=== PATIENT | male | born 1960 | race Caucasian/White ===

== ENCOUNTER 2019-11-21 14:49 | Emergency (ER) | payer BC, OTHER ==
[~2019-11-21] VITALS: Ht 185.4 cm; Wt 72.5 kg
[2019-11-21 15:31] VITALS: BP 112/70
--- NOTE | 2019-11-21 15:42 | RAD ---
CT chest without contrast dated 11/21/2019. Comparison made to 03/05/2013. CLINICAL INDICATION: Pain. TECHNIQUE: Contiguous axial imaging the chest performed without the administration of intravenous contrast. One or more of the following individualized dose reduction techniques were utilized for this examination: 1. Automated exposure control 2. Adjustment of the mA and/or kV according to patient size 3. Use of iterative reconstruction technique FINDINGS: Slight angulation of the seventh and eighth anterior lateral left ribs consistent with small nondisplaced fractures. Osseous structures otherwise intact. The patient is status post median sternotomy and CABG procedure. Heart size upper limits of normal. No pericardial effusion. There is evidence of prior mitral valve replacement. No mediastinal, hilar or axillary lymphadenopathy. Thyroid gland unremarkable. Central airways are patent. Mild diffuse bronchial wall thickening. There is some patchy groundglass opacity in the right lower lobe dependently with small right pleural effusion. Lungs are otherwise clear. No pneumothorax. Limited images of the upper abdomen are unremarkable. No acute bony abnormality. Multilevel spondylosis. IMPRESSION: 1. There are nondisplaced fractures of the anterolateral seventh and eighth left ribs. 2. No evidence of pneumothorax. 3. Patchy right basilar airspace disease, likely atelectasis. There is a small right pleural effusion. 4. Status post CABG procedure and mitral valve replacement. Electronically signed by: Rodri Evans MD (11/21/2019 3:39 PM) [facility]
--- NOTE | 2019-11-21 15:45 | RAD ---
RIBS LEFT AND PA CHEST History: Reason: fall / Spl. Instructions: / History: . Pain Technique: PA view the chest and 2 additional views of the left ribs. Comparison: None. Findings: No consolidation or pleural effusion. Normal heart size. No pneumothorax. Prior mid sternotomy. No displaced rib fractures. Impression: 1. No acute cardiopulmonary process. No displaced rib fractures. Electronically signed by: Mann Goetz DO (11/21/2019 3:42 PM) [id number]
[2019-11-21] MEDS ORDERED: HYDR-3165 PO (15:55)
[2019-11-21] MEDS ORDERED: IBUP600T16 PO (15:55)
[2019-11-21] MEDS ORDERED: LIDO1ADH TP (15:55)
--- NOTE | 2019-11-21 15:57 | PHYS DOC ---
Past History Past Medical History: Other Past Surgical History: Other Smoking: Non-smoker Alcohol Use: None Drug Use: None General Adult EDM: Chief Complaint: RIB PAIN HPI: HPI: Patient is a [age] year old [sex] who presents with [] Review of Systems: Review of Systems: Constitutional: Denies fever or chills Eyes: Denies change in visual acuity HENT: Denies nasal congestion or sore throat Respiratory: Denies cough or shortness of breath Cardiovascular: Denies chest pain or edema GI: Denies abdominal pain, nausea, vomiting, bloody stools or diarrhea : Denies dysuria Musculoskeletal: Denies back pain or joint pain Integument: Denies rash Neurologic: Denies headache, focal weakness or sensory changes Endocrine: Denies polyuria or polydipsia Lymphatic: Denies swollen glands Psychiatric: Denies depression or anxiety Heart Score: Risk Factors: Risk Factors: DM, Current or recent (<one month) smoker, HTN, HLP, family history of CAD, obesity. Risk Scores: Score 0 - 3: 2.5% MACE over next 6 weeks - Discharge Home Score 4 - 6: 20.3% MACE over next 6 weeks - Admit for Clinical Observation Score 7 - 10: 72.7% MACE over next 6 weeks - Early Invasive Strategies Current Medications: Current Meds: Current Medications Medications (Trade) Dose Ordered Sig/[place] Start Time Stop Time Status Last Admin Dose Admin Lidocaine (Lidoderm) 1 patch DAILY 11/22/19 09:00 Miscellaneous (Lidoderm Patch Removal) 1 ea QHS 11/21/19 21:00 Allergies: Allergies: Allergies Coded Allergies Type Severity Reaction Last Updated Verified No Known Drug Allergies 03/05/13 No Physical Exam: PE: Constitutional: Well developed, well nourished, no acute distress, non-toxic appearance. [] HENT: Normocephalic, atraumatic, bilateral external ears normal, oropharynx moist, no oral exudates, nose normal. [] Eyes: PERRLA, EOMI, conjunctiva normal, no discharge. [] Neck: Normal range of motion, no tenderness, supple, no stridor. [] Cardiovascular:Heart rate regular rhythm, no murmur [] Lungs & Thorax: Bilateral breath sounds clear to auscultation [] Abdomen: Bowel sounds normal, soft, no tenderness, no masses, no pulsatile masses. [] Skin: Warm, dry, no erythema, no rash. [] Back: No tenderness, no CVA tenderness. [] Extremities: No tenderness, no cyanosis, no clubbing, ROM intact, no edema. [] Neurologic: Alert and oriented X 3, normal motor function, normal sensory function, no focal deficits noted. [] Psychologic: Affect normal, judgement normal, mood normal. [] EKG: EKG: [] Radiology/Procedures: Radiology/Procedures: IMAGING REPORT Signed PATIENT: GROVER PERERA ACCOUNT: [id number] : 1960 LOCATION: ER AGE: 59 SEX: M EXAM STATUS: REG ER ORD. PHYSICIAN: KOURTNEY WEISS DO REASON: fall PROCEDURE: RIBS LEFT AND PA CHEST RIBS LEFT AND PA CHEST History: Reason: fall / Spl. Instructions: / History: . Pain Technique: PA view the chest and 2 additional views of the left ribs. Comparison: None. Findings: No consolidation or pleural effusion. Normal heart size. No pneumothorax. Prior mid sternotomy. No displaced rib fractures. Impression: 1. No acute cardiopulmonary process. No displaced rib fractures. Electronically signed by: Mann Goetz DO (11/21/2019 3:42 PM) [id number] DICTATED AND SIGNED BY: MANN GOETZ DO DATE: 11/21/19 154 CC: PCP,NO; KOURTNEY WEISS DO ~ IMAGING REPORT Signed PATIENT: GROVER PERERA ACCOUNT: [id number] : 1960 LOCATION: ER AGE: 59 SEX: M EXAM STATUS: REG ER ORD. PHYSICIAN: KOURTNEY WEISS DO REASON: left lower rib pain PROCEDURE: CT CHEST WO CONTRAST CT chest without contrast dated 11/21/2019. Comparison made to 03/05/2013. CLINICAL INDICATION: Pain. TECHNIQUE: Contiguous axial imaging the chest performed without the administration of intravenous contrast. One or more of the following individualized dose reduction techniques were utilized for this examination: 1. Automated exposure control 2. Adjustment of the mA and/or kV according to patient size 3. Use of iterative reconstruction technique FINDINGS: Slight angulation of the seventh and eighth anterior lateral left ribs consistent with small nondisplaced fractures. Osseous structures otherwise intact. The patient is status post median sternotomy and CABG procedure. Heart size upper limits of normal. No pericardial effusion. There is evidence of prior mitral valve replacement. No mediastinal, hilar or axillary lymphadenopathy. Thyroid gland unremarkable. Central airways are patent. Mild diffuse bronchial wall thickening. There is some patchy groundglass opacity in the right lower lobe dependently with small right pleural effusion. Lungs are otherwise clear. No pneumothorax. Limited images of the upper abdomen are unremarkable. No acute bony abnormality. Multilevel spondylosis. IMPRESSION: 1. There are nondisplaced fractures of the anterolateral seventh and eighth left ribs. 2. No evidence of pneumothorax. 3. Patchy right basilar airspace disease, likely atelectasis. There is a small right pleural effusion. 4. Status post CABG procedure and mitral valve replacement. Electronically signed by: Rodri Evans MD (11/21/2019 3:39 PM) [facility] [place] DICTATED AND SIGNED BY: RODRI EVANS MD DATE: 11/21/19 1539 CC: PCP,ARSENIO; KOURTNEY WEISS DO ~ Course & Med Decision Making: Course & Med Decision Making Pertinent Labs and Imaging studies reviewed. (See chart for details) Encouraged urgent outpatient follow-up with PMD. Life-threatening processes we re considered but are low suspicion at this time, given history and physical exam. Pt was educated on all prescription medications and adverse effects. All patient's questions were answered and pt was stable at time of discharge. Life/limb-threatening differential includes but is not limited to, intracranial hemorrhage, diffuse axonal injury, spinal cord syndrome, unstable cervical fracture or SCIWORA, fractures or joint dislocations, neurovascular injuries, organ injury or laceration, pneumothorax, pneumoperitoneum, pericardial tamponade, unstable pelvic fracture, compartment syndrome, flail chest or respiratory distress, burn injury or asphyxiation I spoken with the patient and her caregivers. I explained the patient's condition, diagnoses and treatment plan based on the information available to me at this time. I have answered the patient and her caregiver's questions and addressed any concerns. The patient and her caregivers have a good understanding of patient's diagnosis, condition and treatment plan as can be expected at this point. Vital signs have been stable. Patient's condition is stable and appropriate for discharge from the emergency department. Patient will pursue further outpatient evaluation with primary care physician or other designated or consulting physician as outlined in the discharge instructions. The patient and/or caregivers are agreeable to this plan of care and follow-up instructions have been explained in detail. The patient and/or caregivers have received these instructions in written form and have expressed an understanding of the discharge instructions. The patient and/or caregivers are aware that any significant change of condition or worsening of symptoms should prompt immediate return to this or the closest emergency department or call to [facility] George Disclaimer: George Disclaimer: This electronic medical record was generated, in whole or in part, using a voice recognition dictation system. Departure Departure: Impression: Primary Impression: Fall Additional Impression: Rib fractures Disposition: HOME/RESIDENCE PRIOR TO ADM Condition: STABLE Referrals: PCP,NO (PCP) FOLLOW UP WITH FAMILY MEDICINE: [facility], [id number] [place] [address], [facility] Instructions: Fall Prevention and Home Safety, Rib Contusion, Rib Fracture Additional Instructions: EMERGENCY DEPARTMENT GENERAL DISCHARGE INSTRUCTIONS Thank you for coming to [facility] (ED) today and trusting us with you care. We trust that you had a positivie experience in our Emergency Department. If you wish to speak to the department management, you may call the director at [phone]. YOUR FOLLOW UP INSTRUCTIONS ARE FOLLOWS: 1. Do you have a private Doctor? If you do not have a private doctor, please ask for a resource list of physicians or clinics that may be able to assist you with follow up care. 2. The Emergency Physician has interpreted your x-rays. The X-Ray specialist will also review them. If there is a change in the findings, you will be notified in 48 hours when at all possible. 3. A lab test or culture has been done, your results will be reviewed and you will be notified if you need a change in treatment. ADDITIONAL INSTRUCTIONS AND INFORMATION: 1. Your care today has been supervised by a physician who is specially trained in emergency care. Many problems require more than one evaluation for a complete diagnosis and treatment. We recommend that you schedule your follow up appointment as recommended to ensure complete treatment of you illness or injury. If you are unable to obtain follow up care and continue to have a problem, or if your condition worsens, we recommend that you return to the ED. 2. We are not able to safely determine your condition over the phone nor are we able to give sound medical advice over the phone. For these safety reasons, if you call for medical advice we will ask you to come to the ED for further evaluation. 3. If you have any questions regarding these discharge instructions please call the ED at [phone]. SAFETY INFORMATION: In the interest of safety, wellness, and injury prevention; we encourage you to wear your sealbelt, if you smoke; quite smoking, and we encourage family to use a protective helmet for bicycling and other sporting events that present an increased risk for head injury. IF YOUR SYMPTOMS WORSEN OR NEW SYMPTOMS DEVELOP, OR YOU HAVE CONCERNS ABOUT YOUR CONDITION; OR IF YOUR CONDITION WORSENS WHILE YOU ARE WAITING FOR YOUR FOLLOW UP APPOINTMENT; EITHER CONTACT YOUR PRIMARY CARE DOCTOR, THE PHYSICIAN WHOSE NAME AND NUMBER YOU WERE GIVEN, OR RETURN TO THE ED IMMEDIATELY. Scripts Ibuprofen (IBUPROFEN) 600 Mg Tablet 600 MG PO Q6HRS for headache, #20 TAB Prov: KOURTNEY WEISS DO 11/21/19 Lidocaine/Menthol (LIDOPATCH) 1 Each Adh..patch 1 LATONIA TP DAILY for pain for 5 Days, #5 EACH 0 Refills Prov: KOURTNEY WEISS DO 11/21/19 Hydrocodone Bit/Acetaminophen (NORCO 5-325 TABLET) 1 Each Tablet 1 TAB PO PRN Q6HRS PRN for PAIN for 3 Days, #20 TAB 0 Refills Prov: KOURTNEY WEISS DO 11/21/19 KOURTNEY WEISS DO Nov 21, 2019 15:57
[2019-11-21] MEDS ORDERED: LIDOCAINE (700MG/PATCH) PATCH. ONE (16:07)
[2019-11-21] MEDS ORDERED: PATCH REMOVAL. MC SCH (21:00)
[2019-11-22] MEDS ORDERED: LIDOCAINE (700MG/PATCH) PATCH. TD SCH (09:00)
== END 2019-11-21 16:46 | disposition home or self-care (01) ==
LOC: ER 14:49
DX: S22.42XA Multiple fractures of ribs, left side, initial encounter for closed fracture (principal); W10.8XXA Fall (on) (from) other stairs and steps, initial encounter; Y93.89 Activity, other specified; Y92.89 Other specified places as the place of occurrence of the external cause; Y99.8 Other external cause status
CPT/HCPCS: 71101; 71250; 99284

== ENCOUNTER 2019-12-20 17:13 | Observation (INO) | payer OTHER ==
[~2019-12-20] VITALS: Ht 185.4 cm; Wt 70.7 kg
[~2019-12-20 17:13] MED LIST: HYDR-3165 PO; IBUP600T16 PO; LIDO1ADH TP
--- NOTE | 2019-12-20 17:21 | PHYS DOC ---
Past History Past Medical History: CAD, Heart Disease, Stroke (YUAN DA SILVA DO) Past Surgical History: Coronary Bypass Surgery (YUAN DA SILVA DO) Smoking: Non-smoker Alcohol Use: None Drug Use: None (YUAN DA SILVA DO) General Adult EDM: Chief Complaint: UPPER EXTREMITY SWELLING HPI: HPI: 59 year old male with pmh of prior CVA with chronic left sided deficit presents with report of increased numbness and swelling to LUE which started last night at approximately 2100. Reports last stroke 1-2 months ago. Denies trauma. Denies fever/chills. Home health nurse presented today and was concerned for possible new stroke today and therefore had patient present to ED for evaluation. (YUAN DA SILVA DO) Review of Systems: Review of Systems: Constitutional: Denies fever or chills Eyes: Denies redness or eye pain HENT: Denies nasal congestion or sore throat Respiratory: Denies cough or shortness of breath Cardiovascular: Denies chest pain or palpitations GI: Denies abdominal pain, nausea, or vomiting : Denies dysuria or hematuria Musculoskeletal: Denies back pain; reports swelling to LUE Integument: Denies rash or skin lesions Neurologic: Denies headache; reports numbness to left arm and hand Complete systems were reviewed and found to be within normal limits, except as documented in this note. (YUAN DA SILVA DO) Allergies: Allergies: Allergies Coded Allergies Type Severity Reaction Last Updated Verified No Known Drug Allergies 03/05/13 No (YUAN DA SILVA DO) Physical Exam: PE: Constitutional: Well developed, well nourished, no acute distress, non-toxic appearance HENT: Normocephalic, atraumatic Eyes: PERRL, EOMI, conjunctiva normal, no discharge Neck: Normal range of motion, no tenderness, supple Lungs & Thorax: No respiratory distress, equal chest rise and fall Abdomen: Soft, no tenderness Skin: Warm, dry, no erythema, no rash Extremities: Left upper arm 2+ edema with increased warmth and tenderness, strength 2/5 to LUE Neurologic: Alert and oriented X 3, LUE weakness and numbness- hx of chronic deficit Psychologic: Affect normal, judgment normal (YUAN DA SILVA DO) Current Patient Data: Labs: Laboratory Tests Test 12/20/19 18:10 White Blood Count 7.8 x10^3/uL Red Blood Count 3.99 x10^6/uL Hemoglobin 11.9 g/dL Hematocrit 34.9 % Mean Corpuscular Volume 88 fL Mean Corpuscular Hemoglobin 30 pg Mean Corpuscular Hemoglobin Concent 34 g/dL Red Cell Distribution Width 14.3 % Platelet Count 264 x10^3/uL Neutrophils (%) (Auto) 76 % Lymphocytes (%) (Auto) 15 % Monocytes (%) (Auto) 6 % Eosinophils (%) (Auto) 2 % Basophils (%) (Auto) 1 % Neutrophils # (Auto) 5.9 x10^3uL Lymphocytes # (Auto) 1.2 x10^3/uL Monocytes # (Auto) 0.5 x10^3/uL Eosinophils # (Auto) 0.1 x10^3/uL Basophils # (Auto) 0.1 x10^3/uL Prothrombin Time 10.7 SEC Prothromb Time International Ratio 1.0 Activated Partial Thromboplast Time 28 SEC Sodium Level 140 mmol/L Potassium Level 4.1 mmol/L Chloride Level 103 mmol/L Carbon Dioxide Level 26 mmol/L Anion Gap 11 Blood Urea Nitrogen 27 mg/dL Creatinine 1.7 mg/dL Estimated GFR (Cockcroft-Gault) 41.8 BUN/Creatinine Ratio 16 Glucose Level 147 mg/dL Lactic Acid Level 1.2 mmol/L Calcium Level 9.6 mg/dL Magnesium Level 1.4 mg/dL Total Bilirubin 0.8 mg/dL Aspartate Amino Transf (AST/SGOT) 20 U/L Alanine Aminotransferase (ALT/SGPT) 22 U/L Alkaline Phosphatase 73 U/L Troponin I Quantitative < 0.017 ng/mL Total Protein 7.4 g/dL Albumin 3.7 g/dL Albumin/Globulin Ratio 1.0 (CELESTE MILLER DO) EKG: EKG: @1717 NSR at 86bpm, NO ST elevation, QRS 94ms, QT/QTc 376/453ms, baseline artifact. (YUAN DA SILVA DO) Radiology/Procedures: Radiology/Procedures: PROCEDURE: CT CODE STROKE HEAD WO EXAM: CT head without contrast INDICATION: History of stroke with left-sided deficits. Home health nurse concerned about worsened left arm deficits. Left arm swelling. COMPARISON: CT head 09/27/2019 TECHNIQUE: Axial CT imaging through the head without intravenous contrast. One or more of the following individualized dose reduction techniques were utilized for this examination: 1. Automated exposure control 2. Adjustment of the mA and/or kV according to patient size 3. Use of iterative reconstruction technique. FINDINGS: There has been progression of encephalomalacia in the right frontoparietal and occipital regions with increased confluent white matter hypoattenuation throughout the right cerebral hemisphere and areas of loss of suarez-white matter differentiation. This is all likely sequela of old infarct, however superimposed subacute or acute infarct is not entirely excluded. There is new mild ex vacuo dilatation of the right lateral ventricle. Sulci are mildly enlarged. No intracranial hemorrhage. No acute osseous abnormality. There are surgical changes of the maxillary sinuses. Globes and orbits are intact. Skull and scalp are intact. IMPRESSION: Probable old infarcts in the right cerebral hemisphere with progression of encephalomalacia in the frontoparietal and occipital regions. Superimposed subacute or acute infarcts in these regions cannot entirely be excluded given the extent of change from prior exam. MRI could be obtained to evaluate for acute component if clinically indicated. Results discussed by Dr. Hyatt with the ER physician at 5:36 PM on 12/20/2019. FOR INTERNAL CODING PURPOSES Critical result: Findings discussed with YUAN DA SILVA at 12/20/2019 5:36 PM. RESULT CODE: (C) Electronically signed by: Estephanie Hyatt MD (12/20/2019 5:49 PM) [id number] (YUAN DA SILVA DO) Radiology/Procedures: [address] [address] IMAGING REPORT Signed PATIENT: GROVER PERERA ACCOUNT: [id number] : 1960 LOCATION: ER AGE: 59 SEX: M EXAM STATUS: REG ER ORD. PHYSICIAN: YUAN DA SILVA DO REASON: swelling eval for DVT PROCEDURE: VENOUS UPPER EXTREMITY LEFT Examination: Ultrasound left upper extremity venous duplex HISTORY: History of left upper extremity swelling COMPARISON: None Technique: Grayscale, color Doppler 2-D, spectral waveforms analysis of the left upper extremity venous performed. FINDINGS: The visualized internal jugular vein, subclavian vein, axillary vein, basilic vein, cephalic vein, radial, ulnar veins are patent. IMPRESSION: No evidence of deep venous thrombosis in the left upper extremity venous system. Electronically signed by: Santiago Cason MD (12/20/2019 6:05 PM) [id number] DICTATED AND SIGNED BY: SANTIAGO CASON MD DATE: 12/20/19 1802 CC: PCP,NO; CELESTE MILLER DO; YUAN DA SILVA DO ~ (CELESTE MILLER DO) Course & Med Decision Making: Course & Med Decision Making Pertinent Labs and Imaging studies reviewed. (See chart for details) Patient with pmh of CVA with chronic left arm deficit presents with report of left arm swelling and numbness that started at approximately 2100 last night. Patient's home health nurse became concern for possible new stroke and sent patient to ED for evaluation. NIHSS 7 but per patient is baseline. CT head obtained with chronic changes. However, radiologist expressed cannot fully exclude acute on chronic CVA. Labs obtained and pending. Venous doppler of LUE also pending. Sign out given to Dr. Miller for further evaluation and final disposition. Discussed current findings and plan with patient, who acknowledges understanding and agreement. (YUAN DA SILVA DO) Course & Med Decision Making 1800 Care of patient assumed at shift change at this time. CT head is unremarkable for acute changes. No indication for TPA at this time. Onset of left arm subacute weakness has been since 2100 yesterday. Patient is out of the window for any thrombolytics 1954 stable, patient has some mild weakness to left arm and less weakness to left leg. Patient is complaining of some numbness to his left foot. Patient is otherwise neurovascularly intact. The side was previously affected by an old stroke. However patient states that the weakness is worse than normal. Regarding the swelling to his left arm a Doppler study was obtained and there is no DVT present. Remainder of his ER work-up, blood work etc. was unremarkable. We will see about overnight admission to the hospital and the hospitalist service was contacted to discuss case (CELESTE MILLER DO) Dragon Disclaimer: Dragon Disclaimer: This electronic medical record was generated, in whole or in part, using a voice recognition dictation system. (YUAN DA SILVA DO) Departure Departure: Impression: Primary Impression: Left arm numbness Additional Impressions: Left arm swelling Left arm weakness Paresthesia of left leg History of CVA (cerebrovascular accident) Disposition: 09 ADMITTED INPT THIS HOSP Admitting Physician: Brian Valles (CELESTE MILLER DO) Condition: STABLE Referrals: PCP,NO (PCP) NIHSS - ED NIH Stroke Scale: NIH Stroke Scale Response (Comments) Value Level of Consciousness: 0 Alert/Responsive 0 LOC Questions: 0 Answers both correctly 0 LOC Commands: 0 Performs both tasks 0 Best Gaze: 0 Normal 0 Visual: 0 No visual loss 0 Facial Palsy: 0 Normal, symmetrical 0 Motor - Left Arm 3 Limb falls 3 Motor - Right Arm 3 Limb falls 3 Motor - Left Leg 0 No drift 0 Motor: Right Leg 0 No drift 0 Limb Ataxia: 0 Absent 0 Sensory: 1 Mid to moderate loss 1 Best Language: 0 Normal 0 Dysathria: 0 Normal 0 Extinction and Inattention: 0 Normal 0 Total 7 NIH Stroke Scale: NIH Stroke Scale Response (Comments) Value Level of Consciousness: 0 Alert/Responsive 0 LOC Questions: 0 Answers both correctly 0 LOC Commands: 0 Performs both tasks 0 Best Gaze: 0 Normal 0 Visual: 0 No visual loss 0 Facial Palsy: 0 Normal, symmetrical 0 Motor - Left Arm 1 Drifts, but can hold 1 Motor - Right Arm 0 No drift 0 Motor - Left Leg 1 Drift but can hold 1 Motor: Right Leg 0 No drift 0 Limb Ataxia: 1 One limb 1 Sensory: 1 Mid to moderate loss 1 Best Language: 0 Normal 0 Dysathria: 0 Normal 0 Extinction and Inattention: 0 Normal 0 Total 4 DA SILVA,YUAN Marshall DO Dec 20, 2019 17:20 CELESTE MILLER DO Dec 20, 2019 18:06
--- NOTE | 2019-12-20 17:38 | EKG ---
[address] [address] Test Date: 2019-12-20 Test Time: 17:17:45 Pat Name: GROVER PERERA Department: Room: Gender: M Patient Transport Officer: JENNY : 1960 Requested By: YUAN DA SILVA Order Number: [id number] Reading MD: Measurements Intervals [place] Rate: 86 P: 0 AL: 178 QRS: 4 QRSD: 94 T: 92 QT: 376 QTc: 453 Interpretive Statements SINUS RHYTHM QRS(T) CONTOUR ABNORMALITY CONSIDER ANTEROSEPTAL MYOCARDIAL DAMAGE T ABNORMALITY IN HIGH LATERAL LEADS INFERIOR LEADS ABNORMAL ECG RI6.02 No previous ECG available for comparison
--- NOTE | 2019-12-20 17:52 | RAD ---
EXAM: CT head without contrast INDICATION: History of stroke with left-sided deficits. Home health nurse concerned about worsened left arm deficits. Left arm swelling. COMPARISON: CT head 09/27/2019 TECHNIQUE: Axial CT imaging through the head without intravenous contrast. One or more of the following individualized dose reduction techniques were utilized for this examination: 1. Automated exposure control 2. Adjustment of the mA and/or kV according to patient size 3. Use of iterative reconstruction technique. FINDINGS: There has been progression of encephalomalacia in the right frontoparietal and occipital regions with increased confluent white matter hypoattenuation throughout the right cerebral hemisphere and areas of loss of suarez-white matter differentiation. This is all likely sequela of old infarct, however superimposed subacute or acute infarct is not entirely excluded. There is new mild ex vacuo dilatation of the right lateral ventricle. Sulci are mildly enlarged. No intracranial hemorrhage. No acute osseous abnormality. There are surgical changes of the maxillary sinuses. Globes and orbits are intact. Skull and scalp are intact. IMPRESSION: Probable old infarcts in the right cerebral hemisphere with progression of encephalomalacia in the frontoparietal and occipital regions. Superimposed subacute or acute infarcts in these regions cannot entirely be excluded given the extent of change from prior exam. MRI could be obtained to evaluate for acute component if clinically indicated. Results discussed by Dr. Hyatt with the ER physician at 5:36 PM on 12/20/2019. FOR INTERNAL CODING PURPOSES Critical result: Findings discussed with YUAN DA SILVA at 12/20/2019 5:36 PM. RESULT CODE: (C) Electronically signed by: Estephanie Hyatt MD (12/20/2019 5:49 PM) [id number]
--- NOTE | 2019-12-20 18:17 | RAD ---
Examination: Ultrasound left upper extremity venous duplex HISTORY: History of left upper extremity swelling COMPARISON: None Technique: Grayscale, color Doppler 2-D, spectral waveforms analysis of the left upper extremity venous performed. FINDINGS: The visualized internal jugular vein, subclavian vein, axillary vein, basilic vein, cephalic vein, radial, ulnar veins are patent. IMPRESSION: No evidence of deep venous thrombosis in the left upper extremity venous system. Electronically signed by: Santiago Cason MD (12/20/2019 6:05 PM) [id number]
[2019-12-20 18:50] LABS: CALCIUM 9.6 mg/dL (8.5-10.1); CREATININE 1.7 mg/dL (0.7-1.3); GFR 41.8; POTASSIUM 4.1 mmol/L (3.5-5.1)
[2019-12-20 19:00] LABS: ALBUMIN 3.7 g/dL (3.4-5.0); MAGNESIUM 1.4 mg/dL (1.8-2.4); TOTAL BILIRUBIN 0.8 mg/dL (0.2-1.0); TOTAL PROTEIN 7.4 g/dL (6.4-8.2)
--- NOTE | 2019-12-20 19:03 | RAD ---
EXAM: PORTABLE CHEST 1V 12/20/2019 5:15 PM CLINICAL INDICATION: Weakness COMPARISON: Chest radiograph 03/05/2013 TECHNIQUE: AP upright view of the chest FINDINGS: There are new median sternotomy wires. The heart and mediastinum are normal. Lungs are well-expanded. No consolidation. There are new small bilateral pleural effusions. No pneumothorax. No acute osseous abnormality. IMPRESSION: New small bilateral pleural effusions. Electronically signed by: Estephanie Hyatt MD (12/20/2019 7:00 PM) [id number]
[2019-12-20 19:47] LABS: BASO # 0.1 x10^3/uL (0.0-0.2); BASO % 1 % (0-3); EOS # 0.1 x10^3/uL (0.0-0.7); EOS % 2 % (0-3); HEMATOCRIT 34.9 % (39.0-53.0); HEMOGLOBIN 11.9 g/dL (13.0-17.5); LYMPH # 1.2 x10^3/uL (1.0-4.8); LYMPH % 15 % (24-48); MEAN CORPUSCULAR HEMOGLOBIN 30 pg (25-35); MEAN CORPUSCULAR HGB CONC 34 g/dL (31-37); MEAN CORPUSCULAR VOLUME 88 fL (79-100); MONO # 0.5 x10^3/uL (0.0-1.1); MONO % 6 % (0-9); NEUT # 5.9 x10^3uL (1.8-7.7); NEUT % 76 % (31-73); PLATELET COUNT 264 x10^3/uL (140-400); RED BLOOD COUNT 3.99 x10^6/uL (4.30-5.70); RED CELL DISTRIBUTION WIDTH 14.3 % (11.5-14.5); WHITE BLOOD COUNT 7.8 x10^3/uL (4.0-11.0)
[2019-12-20] MEDS ORDERED: ONDANSETRON PF 4 MG/2 ML VIAL. IVP PRN (20:45)
[2019-12-20 21:39] VITALS: BP 159/85
[2019-12-20 23:12] VITALS: BP 167/95
[2019-12-21] MEDS ORDERED: TICA90TA PO (02:06)
[2019-12-21] MEDS ORDERED: PANT40TA6 PO (02:06)
[2019-12-21] MEDS ORDERED: BACL10TA PO (02:06)
[2019-12-21] MEDS ORDERED: METF500T16 PO (02:06)
[2019-12-21] MEDS ORDERED: CARV12.547 PO (02:06)
[2019-12-21] MEDS ORDERED: ATORVASTATIN CA80 MG PO (02:06)
[2019-12-21] MEDS ORDERED: ASPI-630 PO (02:06)
[2019-12-21] MEDS ORDERED: ESCITALOPRAM OX20 MG PO (02:06)
[2019-12-21 05:18] VITALS: BP 155/89
[2019-12-21] MEDS ORDERED: BACL20TA PO (05:27)
[2019-12-21] MEDS: PANTOPRAZOLE 40 MG TABLET. PO SCH (08:41)
[2019-12-21] MEDS: TICAGRELOR 90 MG TABLET. PO SCH ×2 (08:41→20:15)
[2019-12-21] MEDS: BACLOFEN 20 MG TABLET PO SCH ×3 (08:42→20:15)
[2019-12-21] MEDS: CARVEDILOL 12.5 MG TABLET PO SCH ×2 (08:42→17:15)
[2019-12-21] MEDS: CITALOPRAM 20 MG TABLET. PO SCH (08:42)
[2019-12-21] MEDS: ASPIRIN CHEWABLE 81 MG TABLET. PO SCH (08:42)
[2019-12-21 10:32] VITALS: BP 135/82
[2019-12-21 14:51] VITALS: BP 116/77
--- NOTE | 2019-12-21 15:44 | HP ---
ADMIT DATE: 12/20/2019 HISTORY OF PRESENT ILLNESS: The patient is a 59-year-old male patient who came to the Emergency Room complaining of upper extremity swelling. He apparently had prior cerebrovascular accident with left-sided deficit, presents with report of increased numbness and swelling of the left upper extremity, which started last night at approximately 2100. He had a stroke about 1-2 months ago. Denied any trauma, denied any fevers or chills. Home health nurse presented today and was concerned for possible new stroke. Therefore, the patient presented to the Emergency Room for further evaluation. He was extensively investigated and has had extensive lab work and had had imaging studies including venous Doppler ultrasound of his left upper extremity, which showed no evidence of deep vein thrombosis in the left upper extremity venous system. His CT scan of the head was unremarkable. The patient was admitted for further evaluation and to consult Dr. Jeong. PAST MEDICAL HISTORY: Significant for hypertension, hyperlipidemia, type 2 diabetes mellitus and also has right middle cerebral artery territory infarct with left-sided hemiplegia. He has also coronary artery disease, status post coronary artery bypass graft surgery. PAST SURGICAL HISTORY: Significant for coronary artery bypass graft surgery. ALLERGIES: He has no known drug allergies. MEDICATIONS: He is currently on following: Baclofen 10 mg 3 times a day, Brilinta 90 mg twice a day, atorvastatin calcium 80 mg at bedtime, carvedilol 12.5 mg twice a day, aspirin 81 mg chewable tablet once a day, ibuprofen 600 mg every 6 hours, hydrocodone/APAP 5/325 one tablet every 6 hours, escitalopram oxalate 20 mg daily, Protonix 20 mg once a day, metformin 500 mg twice a day, lido patch 1 patch applied topically daily. FAMILY HISTORY: Noncontributory. SOCIAL HISTORY: He lives alone. He has a caregiver. PHYSICAL EXAMINATION: GENERAL: On arrival to the Emergency Room, the patient looked well and was clearly in no apparent distress. He was pale, but no jaundice, cyanosis or thyromegaly. No jugular venous distention. No limb edema. VITAL SIGNS: His heart rate was 85, blood pressure was 149/95, temperature was 97.8, respiratory rate was 16, and oxygen saturation was 98%. HEAD, EYES, EARS, NOSE AND THROAT: Showed normocephalic, atraumatic. NECK: Supple. HEART: Showed normal first and second heart sounds with no gallop, rub or murmur. CHEST: Clear to auscultation. No crepitation or rhonchi. ABDOMEN: Scaphoid, soft, nontender. NEUROLOGIC: He is awake, alert, responding appropriately. He has mild left-sided facial droop and left-sided hemiplegia with fixed flexion contraction of his left upper extremity. LABORATORY DATA: His lab work on arrival showed a white cell count of 7800, hemoglobin 12, hematocrit 35, MCV 88 and platelet count of 264,000. His chemistry showed a serum sodium 140, potassium 4.1, chloride 103, bicarbonate 26, anion gap of 11, BUN 27, creatinine 1.7, estimated GFR was 42 mL per minute. His glucose 147. Lactic acid was 1.2, calcium was 9.6, magnesium was 1.4. Total bilirubin, AST, ALT, alkaline phosphatase were normal. His total protein was 7.4, albumin was 3.7. His prothrombin time was 10.7, INR 1, aPTT was 28. His venous Doppler ultrasound of the left upper extremity showed no evidence of deep vein thrombosis in the left upper extremity venous system. He has had a CT scan of the head, which showed that the patient has probable old infarct in the right cerebral hemisphere with progression of encephalomalacia in the frontoparietal and occipital region, superimposed subacute or acute infarct in this region cannot be entirely excluded given the extent of change from prior exam. MRI could be obtained to evaluate for acute component, if clinically indicated. His chest x-ray showed there are new mediastinal sternotomy wires. The heart and mediastinum are normal. Lungs are well expanded. No consolidation. There are new small bilateral pleural effusion; no pneumothorax, no acute osseous abnormality. ASSESSMENT AND PLAN: The patient was basically admitted for a new complaint of upper extremity swelling. We will consult Dr. Jeong and decide on further management accordingly. EZE ALMODOVAR MD DR: TAMERA/gurdeep JOB#: [id number] / [id number]
--- NOTE | 2019-12-21 18:56 | CONS ---
DATE OF CONSULTATION: NEUROLOGY CONSULTATION REFERRING PHYSICIAN: Dr. Valles. REASON FOR CONSULTATION: Rule out stroke versus TIA. HISTORY OF PRESENT ILLNESS: This is a 59-year-old right-handed male who was admitted through Emergency Room after he presented with increasing symptoms of weakness, numbness, paresthesia and swelling of the left upper extremity began yesterday. The patient described increased weakness of the left upper extremity associated with swelling and redness. He denies any chest pain, shortness of breath or palpitations. He denies any recent injuries or falls, fever or chills. The patient stated he had a seizure a month ago resulted in left hemiparesis, more prominent on the right side with some residual contractions. He was admitted to [facility] and rehabilitation only for week. The patient was discharged because he exhausted his insurance. Currently, he denies headaches, visual disturbances, nausea, vomiting, or dizziness. He has not been able to walk since the stroke and he has been ambulated with a wheelchair. PAST MEDICAL HISTORY: Significant for coronary artery disease, recent stroke as described above, peripheral neuropathy, hypertension, diabetes mellitus, smoking, hyperlipidemia and depression. PAST SURGICAL HISTORY: Positive for coronary artery bypass graft. SOCIAL HISTORY: He is a former smoker. He denies alcohol or illegal drug use. FAMILY HISTORY: Positive for hypertension and coronary artery disease. CURRENT MEDICATIONS: Lipitor 80 mg p.o. at bedtime, Celexa 40 mg daily, Brilinta 90 mg b.i.d. daily, baclofen 20 mg t.i.d., aspirin 81 mg daily, carvedilol 12.5 mg b.i.d., pantoprazole 40 mg daily, and Zofran p.r.n. ALLERGIES: No known drug allergies. REVIEW OF SYSTEMS: A 10-point review of system was performed as mentioned above in history of present illness. PHYSICAL EXAMINATION: GENERAL: Well-developed, well-nourished male, not in acute distress. He weighs 68.4 kilos. VITAL SIGNS: Blood pressure 155/89, respiratory rate 20, pulse is 82 and regular, temperature 98.2, oxygen saturation 97% on room air. HEENT: Normocephalic, atraumatic, otherwise unremarkable. NECK: Supple. Negative for carotid bruit, lymphadenopathy or thyromegaly. LUNGS: Clear to A and P. CARDIOVASCULAR: Regular rate and rhythm, normal S1 and S2. No murmur. ABDOMEN: Soft. Bowel sounds positive. No palpable mass, organomegaly or tenderness. EXTREMITIES: Positive for swelling, redness and warmth of the distal left upper extremity and tender to touch, mainly on the dorsal aspect of the left hand. NEUROLOGICAL EXAM: 1. Mental Status: The patient is alert and oriented x 3. Speech is fluent. There is no language dysfunction. Memory, judgment, and abstracting thinking are normal. The patient denies hallucination or delusion. 2. Cranial Nerves: Visual geiger are full. The pupils are reactive to light and accommodation. The extraocular movements are intact. There is no nystagmus. There is motor facial and sensory deficit. Hearing is intact bilaterally. The palate is elevated symmetrically. Sternocleidomastoid muscles are powerful bilaterally. The patient shrugs his shoulders symmetrically and protrudes his tongue in the midline without fasciculation or atrophy. 3. Motor: No focal muscle bulk was seen. The tone is normal. The strength is -4/5 in the left upper extremity with drifting. The strength in the left lower extremity is +4/5. The strength also was 5/5 throughout. 4. Sensory Examination: Revealed normal pinprick, light touch, vibratory and position senses. 5. Deep Tendon Reflexes: Symmetric and hyperactive on the left lower extremity with positive Babinski. 6. Gait: Not tested. DIAGNOSTIC DATA: Nonenhanced head CT scan revealed old infarct in the right cerebral hemisphere in the frontoparietal and occipital regions. However, subacute and acute infarcts could not entirely be excluded at this time. Left upper extremity venous duplex ultrasound revealed no evidence of DVT. Chest x-ray revealed small bilateral pleural effusions. LABORATORY DATA: CBC revealed white blood cells of 7.8 thousand, hemoglobin 11.9, hematocrit 34.9, platelet count 264,000. Chemistry revealed sodium 140, potassium 4.1, chloride 103, CO2 of 26, BUN 27, creatinine 1.7, glucose 147, calcium 9.6. Troponin level is normal. Magnesium is low at 1.4. Coagulation: PT is 10.7, INR 1. IMPRESSION: 1. Recent stroke resulted in left hemiparesis, more prominent on the left upper extremity with contractions. 2. Acute onset of swelling, warmth and pain of the left distal upper extremities with negative venous ultrasound for DVT and possible early cellulitis or other pathology. 3. Multiple medical problems include coronary artery disease, status post coronary artery bypass graft, peripheral neuropathy, hypertension, diabetes mellitus, and hyperlipidemia. 4. Renal insufficiency versus failure versus dehydration. RECOMMENDATIONS: 1. Continue with current medical management and home medication. 2. Treat the underlying possible cellulitis, left upper extremity. 3. Physical therapy evaluation and stroke rehabilitation. 4. Treat the underlying renal insufficiency. M Endy AHUJA MD DR: JACQUI/gurdeep JOB#: [id number] / [id number]
[2019-12-21 20:28] VITALS: BP 115/73
[2019-12-21] MEDS ORDERED: ATORVASTATIN CALCIUM 20 MG TABLET PO SCH (21:00)
--- NOTE | 2019-12-21 21:05 | PN ---
DATE: 12/21/2019 SUBJECTIVE: The patient was admitted yesterday with swelling of his left upper extremity and pain. He has had venous Doppler ultrasound of his left upper extremity, which was negative for deep vein thrombosis. CT scan showed that he has encephalomalacia involving his right cerebral hemisphere in the areas including frontoparietal and occipital region and the radiologist stated that superimposed subacute or acute infarct in this region cannot be entirely excluded; however, the patient's main complaint is swelling and exquisite pain, particularly on the dorsum of his hand, his fingers and thumb. The left upper extremity is definitely more swollen than the right, but there is no erythema. He is afebrile and his white cell count was normal at 7800. PHYSICAL EXAMINATION: GENERAL: When I examined him this afternoon, he looked pale, but no jaundice, cyanosis or thyromegaly. No jugular venous distention. No limb edema. VITAL SIGNS: His heart rate was 74, blood pressure was 167/95, temperature was 98.1, respiratory rate 20, and oxygen saturation 100%. HEAD, EYES, NOSE, AND THROAT: Normocephalic, atraumatic. NECK: Supple. HEART: Showed normal first and second heart sounds. No gallop or murmur. CHEST: Clear to auscultation. No crepitation or rhonchi. ABDOMEN: Scaphoid, soft, nontender. NEUROLOGIC: He was awake, alert, responding appropriately. All cranial nerves intact except he has mild left-sided facial droop. He has also left-sided hemiplegia with fixed flexion contraction of his left upper and left lower extremities. In fact, he cannot open even his fingers. His left upper extremity is definitely more swollen. He has exquisite tenderness involving his left upper extremity, specifically at the fingers and the dorsum of the left hand, most likely consistent with reflex sympathetic dystrophy. PLAN: Obviously discuss this option with our neurologist and the patient obviously needs admission to half-way facility to continue with further rehabilitation and obviously, I will look into the literature and see what best treatment for this syndrome that can happen sometimes 6 weeks after the onset of stroke. EZE ALMODOVAR MD DR: TAMERA/gurdeep JOB#: [id number] / [id number]
[2019-12-21 22:46] VITALS: BP 105/66
[2019-12-22 05:14] VITALS: BP 156/85
[2019-12-22 07:00] LABS: HEMATOCRIT 34.5 % (39.0-53.0); HEMOGLOBIN 11.8 g/dL (13.0-17.5); RED BLOOD COUNT 3.97 x10^6/uL (4.30-5.70); RED CELL DISTRIBUTION WIDTH 14.7 % (11.5-14.5); WHITE BLOOD COUNT 7.7 x10^3/uL (4.0-11.0)
[2019-12-22 07:15] LABS: ALBUMIN 3.4 g/dL (3.4-5.0); CALCIUM 9.6 mg/dL (8.5-10.1); CREATININE 0.9 mg/dL (0.7-1.3); POTASSIUM 3.6 mmol/L (3.5-5.1); TOTAL BILIRUBIN 0.6 mg/dL (0.2-1.0); TOTAL PROTEIN 6.8 g/dL (6.4-8.2)
[2019-12-22] MEDS ORDERED: metFORMIN 500 MG TABLET PO SCH (08:00)
[2019-12-22] MEDS: CITALOPRAM 20 MG TABLET. PO SCH (08:12)
[2019-12-22] MEDS: TICAGRELOR 90 MG TABLET. PO SCH (08:12)
[2019-12-22] MEDS: CARVEDILOL 12.5 MG TABLET PO SCH (08:12)
[2019-12-22] MEDS: ASPIRIN CHEWABLE 81 MG TABLET. PO SCH (08:12)
[2019-12-22] MEDS: BACLOFEN 20 MG TABLET PO SCH ×2 (08:12→15:11)
[2019-12-22] MEDS: PANTOPRAZOLE 40 MG TABLET. PO SCH (08:12)
[2019-12-22 11:02] VITALS: BP 126/76
[2019-12-22] MEDS ORDERED: LIDOCAINE (700MG/PATCH) PATCH. TD SCH (14:00)
[2019-12-22] MEDS ORDERED: HYDROcodone/APAP 5/325MG 1 TAB TABLET PO PRN (14:00)
[2019-12-22 14:29] VITALS: BP 123/77
[2019-12-22] MEDS ORDERED: HYDR-2155 PO (15:51)
--- NOTE | 2019-12-22 18:04 | PN ---
DATE: SUBJECTIVE: The patient denies any new medical neurological complaints. He stated his pain on the left arm and hand has resolved. He continues to have weakness of the left upper and lower extremities compared to those on the right side. He denies headaches, chest pain, shortness of breath or palpitation, dysarthria or dysphagia. He eats and drinks well. OBJECTIVE: GENERAL: Well-developed, well-nourished male, not in acute distress. VITAL SIGNS: Blood pressure 156/84, respiratory rate 20, temperature 97.9, oxygen saturation 100% on room air. HEENT: Normocephalic, atraumatic, otherwise unremarkable. NECK: Supple. Negative for carotid bruit, lymphadenopathy or thyromegaly. LUNGS: Clear to A and P. CARDIOVASCULAR: Regular rate and rhythm, normal S1, S2. ABDOMEN: Soft. Bowel sounds positive. EXTREMITIES: Negative for cyanosis, clubbing or edema. The left upper extremity is slightly warm compared to that on the right side; however, he does not have tenderness or significant swelling. NEUROLOGIC EXAM: The patient is alert and oriented x 3. Speech is more fluent. There is no language dysfunction. Cranial nerves are grossly intact. Motor examination is positive for left hemiparesis, more prominent on the left upper extremity with contractions at the wrist. Sensory examination revealed normal pinprick and light touch senses throughout. Deep tendon reflexes were asymmetric and hyperactive with positive Babinski on the left side. Gait not tested. LABORATORY DATA: CBC revealed white blood cells of 7.7 thousand, hemoglobin 11.8, hematocrit 34.5, platelet count 240,000. Chemistry revealed sodium 140, potassium 3.6, chloride 104, CO2 of 25, BUN 21, creatinine 0.9, glucose 127, calcium is 9.6. Liver enzymes are normal. IMPRESSION: 1. Status post stroke resulted in left hemiparesis, more prominent in the left upper extremity with contraction as described above. 2. Multiple medical problems include coronary artery disease, status post coronary artery bypass graft; peripheral neuropathy; hypertension; diabetes mellitus; hyperlipidemia and dehydration. RECOMMENDATIONS: Continue with current management and care initiated by Dr. Valles. This patient needs continuous stroke rehabilitation. M Endy AHUJA MD DR: JACQUI/gurdeep JOB#: [id number] / [id number]
[2019-12-22] MEDS ORDERED: PATCH REMOVAL. MC SCH (21:00)
--- NOTE | 2019-12-22 23:11 | PN ---
DATE: 12/22/2019 SUBJECTIVE: The patient is resting, slightly propped up in bed, in no apparent distress. He is awake, alert and stated the pain in his left arm is much less than before. He denied any other complaint. Obviously, he has left-sided hemiplegia and most likely he has reflex sympathetic dystrophy. He has a caregiver at home. Normally he does not do much for himself. PHYSICAL EXAMINATION: GENERAL: When I examined him, he looked pale, but not jaundice, cyanosis or thyromegaly. No jugular venous distention or limb edema. VITAL SIGNS: His heart rate was 75. Blood pressure was 126/76, temperature 97.9, respiratory rate was 18 and oxygen saturation was 97%. HEAD, EYES, EARS, NOSE AND THROAT: Showed normocephalic, atraumatic. NECK: Supple. CARDIAC: Normal first and second heart sounds. No gallop or murmur. CHEST: Clear to auscultation. No crepitation or rhonchi. ABDOMEN: Scaphoid, soft, nontender. NEUROLOGIC: He is awake, alert, responding appropriately. All his cranial nerves are intact. He has mild, left-sided facial droop. He has left-sided hemiplegia with fixed flexion contraction. His left upper extremity is more swollen, exquisitely tender in his hand and fingers. The left upper extremity is definitely more swollen than the right with loss of skin appendages, consistent probably with reflex sympathetic dystrophy. LABORATORY DATA: His lab work this morning showed white cell count 7700, hemoglobin 12, hematocrit 35, MCV 87 and platelet count 240,000. The chemistry showed serum sodium 140, potassium 3.6, chloride 104, bicarbonate 26, anion gap of 10. BUN 21, creatinine 0.9. Estimated GFR was 87 mL per minute. Glucose 122, calcium was 9.6. Total bilirubin, AST, ALT, alkaline phosphatase were normal. Total protein 6.8, albumin 3.4. Coronavirus by PCR not detectable. ASSESSMENT: Right middle cerebral artery territory infarct, left-sided hemiplegia and pain in his left upper extremity that is swollen; however, there is no evidence of deep vein thrombosis. The tenderness is consistent probably with some reflex sympathetic dystrophy. PLAN: My plan is to obviously continue with physical and occupational therapy. We will add Lidoderm patch for his pain if necessary and contact our social services assistant to see if he can be admitted to a senior care facility for further rehabilitation. EZE ALMODOVAR MD DR: TAMERA/gurdeep JOB#: [id number] / [id number]
== END 2019-12-22 17:35 | disposition home or self-care (01) ==
LOC: ER 17:13 → 1 SOUTH 19:59 → INTOOBSV 19:59
PROVIDERS: ADMIT Internal Medicine; ATTEND Internal Medicine
DX: M79.89 Other specified soft tissue disorders (principal); Z20.828 Contact with and (suspected) exposure to other viral communicable diseases; E11.42 Type 2 diabetes mellitus with diabetic polyneuropathy; G90.50 Complex regional pain syndrome I, unspecified; E78.5 Hyperlipidemia, unspecified; G93.89 Other specified disorders of brain; I10 Essential (primary) hypertension; I25.10 Atherosclerotic heart disease of native coronary artery without angina pectoris; I63.511 Cerebral infarction due to unspecified occlusion or stenosis of right middle cerebral artery; I69.354 Hemiplegia and hemiparesis following cerebral infarction affecting left non-dominant side; Z87.891 Personal history of nicotine dependence; Z95.1 Presence of aortocoronary bypass graft
CPT/HCPCS: 36415; 70450; 71045; 80048; 80053; 80061; 82947; 83605; 83735; 84484; 85025; 85027; 85610; 85730; 93005; 93971; 97110; 97162; 97166; 97530; 99285; G0378; U0003; G0379

== ENCOUNTER 2020-01-26 00:12 | Observation (INO) | payer OTHER ==
[~2020-01-26] VITALS: Ht 180.3 cm; Wt 70.6 kg
[~2020-01-26 00:12] MED LIST changes: +ASPI-630 PO; +ATORVASTATIN CA80 MG PO; +BACL10TA PO; +BACL20TA PO; +CARV12.547 PO; +ESCITALOPRAM OX20 MG PO; +HYDR-2155 PO; +METF500T16 PO; +PANT40TA6 PO; +TICA90TA PO
--- NOTE | 2020-01-26 00:26 | PHYS DOC ---
Past History Past Medical History: CAD, Heart Disease, Stroke Past Surgical History: Coronary Bypass Surgery Smoking: Quit Less Than 1 Year Alcohol Use: Sober Drug Use: None General Adult HPI: HPI: "..He been falling a lot more... maybe 5 times the past couple days.. and 10 x this past week.. He just got discharged from [facility] back in October 31 after a large stroke which he was treated at ... 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 But it does not look like however he will ever be able to go back to work.. he is having memory problems and he has this severe right side weakness from his previous stroke... He can't stand at all.. His mental confusion and memory is really off tonight..."(Jeff patient centered care specialist- [phone]) "..I ve been falling a lot... I had this stoke back in September.. but this Lt. side weakness has not gone away... " ".. 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 Patient has history of prominent CVA in September of this year and was treated at . Eventually discharged to [facility] where he was discharged on October 31 of this year. Since that time has had numerous episodes of falls. Pt. reportedly has had three large CVA's and several TIA's. . Patient has a dense Lt sided deficits that have not improved since last CVA. 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 Increased confusion and memory issues. Patient also talks about seeing his who is . Patient has no recent changes in meds. Has significant past medical history of coronary artery disease, CVA, coronary bypass surgery, Pt used to be a heavy smoker and did occasionally have alcohol binges. 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 Review of Systems: Review of Systems: Constitutional: Denies fever or chills Eyes: Denies change in visual acuity HENT: Denies nasal congestion or sore throat Respiratory: Denies cough or shortness of breath Cardiovascular: Denies chest pain or edema GI: Denies abdominal pain, nausea, vomiting, bloody stools or diarrhea : Denies dysuria Musculoskeletal: Denies back pain or joint pain Integument: Denies rash Neurologic: Complaints of Lt side weakness. Increased weakness and falls. Endocrine: Denies polyuria or polydipsia Lymphatic: Denies swollen glands Psychiatric: Denies depression or anxiety Family History: Family History: Noncontributory to presentation Current Medications: Current Meds: See nursing for home meds Allergies: Allergies: Allergies Coded Allergies Type Severity Reaction Last Updated Verified No Known Drug Allergies 03/05/13 No Physical Exam: PE: Constitutional: Moderate distress, non-toxic appearance. [] HENT: Normocephalic, atraumatic, bilateral external ears normal, oropharynx moist, no oral exudates, nose normal. [] Eyes: PERRLA, EOMI, conjunctiva normal, no discharge. [] Neck: Normal range of motion, no tenderness, supple, no stridor. No bruits appreciated Cardiovascular:Heart rate regular rhythm, no murmur. PMI slightly to the left. [] Lungs & Thorax: Bilateral breath sounds equal apex with few scattered wheezes on auscultation []Pt. has midline scar Abdomen: Bowel sounds normal, soft, no tenderness, no masses, no pulsatile masses. [] Skin: Warm, dry, no erythema, no rash. Multiple small contusions and small skin tears. Contusions appear to be in different stages of healing Back: No tenderness, no CVA tenderness. Some sacral tenderness and lumbar pain on palpation Extremities: Rt hand tenderness, no cyanosis, no clubbing, , no edema. Dense Lt. -sided weakness. Complains of pain in left hand. Contusion on left gluteal area Neurologic: Alert and oriented X 3, moves left side on request, has dense Lt side weakness which is reportedly chronic, patient reports no new focal deficits from previous CVA. Psychologic: Affect anxious, some obvious memory issues, mood depressed affect EKG: EKG: My interpretation of EKG shows a sinus rhythm at 79 bpm. No findings acute STEMI with contralateral changes. [] Radiology/Procedures: Radiology/Procedures: CT head shows no acute bleed. Has diffuse hemispheric white matter changes from suspect chronic microvascular ischemia. Has large right frontal encephalomalacia from prior infarct. CT of spine shows no obvious fracture. Multiple levels of degenerative disc changes. Has stool-filled colon. [] Heart Score: HEART Score for Chest Pain: HEART Score for Chest Pain Response (Comments) Value History Slighlty/Non-Suspicious 0 ECG Normal 0 Age >45 - < 65 1 Risk Factors 1 or 2 Risk Factors 1 Troponin < Normal Limit 0 Total 2 Risk Factors: Risk Factors: DM, Current or recent (<one month) smoker, HTN, HLP, family history of CAD, obesity. Risk Scores: Score 0 - 3: 2.5% MACE over next 6 weeks - Discharge Home Score 4 - 6: 20.3% MACE over next 6 weeks - Admit for Clinical Observation Score 7 - 10: 72.7% MACE over next 6 weeks - Early Invasive Strategies Course & Med Decision Making: Course & Med Decision Making Pertinent Labs and Imaging studies reviewed. (See chart for details) Discussed presentation, testing and treatment plan with . Advised admit to his service.. Urine still pending. Incontinence of urine in the emergency department. Impression: 1. Altered mental status 2. Frequent Falls 3. Hx. CVAs/ TIAs 4. Lt side hemiplegia 5. Anemia 11.1 Hgb. 6. Hypomagnesium 1.4 [] Dragon Disclaimer: Dragon Disclaimer: This electronic medical record was generated, in whole or in part, using a voice recognition dictation system. Departure Departure: Referrals: EDDIE KING MD (PCP) George Disclaimer This chart was dictated in whole or in part using Voice Recognition software in a busy, high-work load, and often noisy Emergency Department environment. It may contain unintended and wholly unrecognized errors or omissions. Dragon Disclaimer This chart was dictated in whole or in part using Voice Recognition software in a busy, high-work load, and often noisy Emergency Department environment. It may contain unintended and wholly unrecognized errors or omissions. JOSH ODONNELL MD Jan 26, 2020 00:26
[2020-01-26] MEDS ORDERED: IV RINGERS SOLUTION,LACTATED 1,000 ML IV SCH (01:15)
[2020-01-26 01:49] LABS: BASO # 0.1 x10^3/uL (0.0-0.2); BASO % 2 % (0-3); EOS # 0.9 x10^3/uL (0.0-0.7); EOS % 12 % (0-3); HEMATOCRIT 32.9 % (39.0-53.0); HEMOGLOBIN 11.1 g/dL (13.0-17.5); LYMPH # 1.7 x10^3/uL (1.0-4.8); LYMPH % 21 % (24-48); MEAN CORPUSCULAR HEMOGLOBIN 30 pg (25-35); MEAN CORPUSCULAR HGB CONC 34 g/dL (31-37); MEAN CORPUSCULAR VOLUME 90 fL (79-100); MONO # 0.5 x10^3/uL (0.0-1.1); MONO % 7 % (0-9); NEUT # 4.6 x10^3uL (1.8-7.7); NEUT % 59 % (31-73); PLATELET COUNT 272 x10^3/uL (140-400); RED BLOOD COUNT 3.67 x10^6/uL (4.30-5.70); RED CELL DISTRIBUTION WIDTH 13.8 % (11.5-14.5); WHITE BLOOD COUNT 7.8 x10^3/uL (4.0-11.0)
[2020-01-26 02:04] LABS: CALCIUM 8.8 mg/dL (8.5-10.1); CREATININE 1.1 mg/dL (0.7-1.3); POTASSIUM 4.1 mmol/L (3.5-5.1)
[2020-01-26 02:18] LABS: ALBUMIN 3.4 g/dL (3.4-5.0); DIRECT BILIRUBIN 0.2 mg/dL (0.0-0.2); MAGNESIUM 1.4 mg/dL (1.8-2.4); TOTAL BILIRUBIN 0.5 mg/dL (0.2-1.0); TOTAL PROTEIN 6.7 g/dL (6.4-8.2)
--- NOTE | 2020-01-26 02:54 | EKG ---
[facility] [address] [place] [address] Test Date: 2020-01-26 Test Time: 01:39:27 Pat Name: GROVER PERERA Department: Room: Gender: M Operator Vacuum: : 1960 Requested By: JOSH ODONNELL Order Number: [id number] Reading MD: Measurements Intervals [place] Rate: 79 P: 47 PA: 204 QRS: 10 QRSD: 88 T: 75 QT: 380 QTc: 437 Interpretive Statements SINUS RHYTHM NORMAL ECG RI6.02 No previous ECG available for comparison
[2020-01-26] MEDS ORDERED: ONDANSETRON PF 4 MG/2 ML VIAL. IVP PRN (04:15)
[2020-01-26] MEDS ORDERED: ACETAMINOPHEN 325 MG TABLET PO PRN (04:15)
--- NOTE | 2020-01-26 05:15 | NUR ---
ADMISSION: The patient, GROVER PERERA, 59 y/o, M admitted by CHAPINCITO BO MD, was given written information regarding hospital policies, unit procedures and contact persons. Pt to room 109 via eli, accompanied by [facility] and nursing sup. Pt here for AMS and falls. Pt reports recent hx of stroke in October 2019 with residual left sided weakness, left arm is contracted. Pt states he is more weak and has fallen at home several times in the past week. Pt resides with his son's childhood friend Tom who is his caregiver. Pt able to review PMH but is unsure of home meds, called Tom to confirm. Discussed POC, V/U. Call light in reach. Valuables were checked and logged. Wheelchair brought from home. Left in room with pt.
[2020-01-26 05:22] VITALS: BP 133/86
[2020-01-26] MEDS ORDERED: MAGNESIUM SULFATE 2GM 50 ML IV ONE (06:15)
[2020-01-26] MEDS ORDERED: HYDR-2759 PO (06:41)
[2020-01-26] MEDS ORDERED: AMLO-187 PO (06:43)
[2020-01-26] MEDS ORDERED: SERT25TA PO (06:50)
[2020-01-26] MEDS ORDERED: IBUP-571 PO (06:51)
[2020-01-26] MEDS ORDERED: IPRATRPIUM/ALBUTEROL 0.5/2.5MG 3 ML NEBU. NEB PRN (07:45)
[2020-01-26] MEDS ORDERED: ASPIRIN 325 MG TABLET PO SCH (08:00)
[2020-01-26] MEDS ORDERED: IPRATRPIUM/ALBUTEROL 0.5/2.5MG 3 ML NEBU. NEB SCH (08:00)
[2020-01-26] MEDS ORDERED: BACLOFEN 20 MG TABLET PO PRN (08:45)
[2020-01-26] MEDS ORDERED: HYDROcodone/APAP 5/325MG 1 TAB TABLET PO PRN (08:45)
[2020-01-26 09:00] VITALS: BP 133/86
[2020-01-26] MEDS ORDERED: LIDOCAINE (700MG/PATCH) PATCH. TP SCH (09:00)
[2020-01-26] MEDS ORDERED: ASPIRIN CHEWABLE 81 MG TABLET. PO SCH (09:00)
[2020-01-26] MEDS ORDERED: amLODIPine BESYLATE 10 MG TABLET PO SCH (09:00)
[2020-01-26] MEDS ORDERED: SERTRALINE 25 MG TABLET. PO SCH (09:00)
[2020-01-26] MEDS ORDERED: PANTOPRAZOLE 40 MG TABLET. PO SCH (09:00)
[2020-01-26] MEDS ORDERED: TICAGRELOR 90 MG TABLET. PO SCH (09:00)
--- NOTE | 2020-01-26 10:56 | NUR ---
DISCHARGE NOTE-Pt is discharging home to care of java web engineer, Marcelino. PIV is removed, pt is on RA. Pt mobile to door for discharge via w/c. Discharge papers reviewed with patient, et signature obtained. SSI et disability applications included in packet, et also reviewed with patient. Plan to also review DC information with in-home caregiver on arrival for discharge.
[2020-01-26] MEDS ORDERED: HEPARIN PF 500 UNIT/5 ML DISP.SYRIN. IVP ONE (11:45)
--- NOTE | 2020-01-26 13:33 | HP ---
ADMIT DATE: 01/26/2020 ATTENDING PHYSICIAN: Dr. Bo. CHIEF COMPLAINT: Altered mentation and falls. HISTORY OF PRESENT ILLNESS: The patient is a 59-year-old gentleman who suffered an extensive stroke in 10/2019. It involved the right middle cerebral artery distribution, which resulted in significant left-sided hemiplegia. Speech was not affected. He spent 3 weeks in [facility] following a stroke in rehab. He ran out of days and he was discharged. Since that time, he has a small animal caretaker that works semi part-time taking care of him in exchange for room and board. He has a son who is grown, his has . He has been falling. He cannot transfer independently. He has had some altered mentation. There are other medications, which may have affected this. He is on Brilinta for anticoagulation. The patient is admitted for further evaluation. The repeat CT of the head report is pending, but no new acute strokes or bleeds were identified. By the time I saw him, he was fairly alert. He was coherent. We had a normal conversation, was back to baseline. He remains hemiparetic on the left side. PAST MEDICAL HISTORY: In addition to the stroke. Significant for essential hypertension, COPD, heavy tobacco use, type 2 diabetes, non-insulin dependent, depression, and gastroesophageal reflux disease. CURRENT MEDICINES: Include amlodipine 10 mg daily, aspirin, Lipitor, baclofen, Coreg 12.5 mg b.i.d., hydrocodone p.r.n. pain, ibuprofen, Lidoderm patch, metformin, Protonix, Zoloft, and Brilinta. ALLERGIES: He has no recorded drug allergies. SOCIAL HISTORY: Heavy smoker up to 4 months ago. He used to drink heavily too, but he has since quit. FAMILY HISTORY: Noncontributory. He is . He has a grown son that lives nearby. He has a small animal caretaker that is living with him. REVIEW OF SYSTEMS: Significant for generalized weakness. He normally is able to transfer, but lately he has been falling a lot. 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 There is difficulty with ambulation. No fevers, chills or COVID exposure. He is not smoking anymore. All other systems reviewed and determined to be negative. PHYSICAL EXAMINATION: GENERAL: When I saw him, this is a pleasant gentleman who was alert. Speech was entirely fluent. INITIAL VITAL SIGNS: Showed a blood pressure 133/86, pulse is 81 and regular, temperature 98.1 degrees Fahrenheit, oxygen saturation 95% on room air. HEENT: Head is without trauma. Pupils are reactive. Slight left-sided facial droop. Tongue was normal, midline. NECK: Supple. No stridor. LUNGS: Clear. CARDIOVASCULAR: Showed regular heart tones. No gallops. ABDOMEN: Soft. EXTREMITIES: Showed trace edema. 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 SKIN: Warm and dry. PERTINENT LABORATORY STUDIES: Hemoglobin is 11.1 g/dL, white count 7800. Electrolytes within normal range. Nonfasting blood sugar 116. Cardiac enzymes were negative for coronary ischemia. Imaging studies including CT of the pelvis, lumbar spine, head and cervical spine, chest x-ray has been done. Preliminary report is still pending. I do not find any evidence of acute bleeds or strokes in his head. His chest x-ray showed sternotomy wires. Heart size is normal. Cardiophrenic angles are clear and sharp. There are no acute infiltrates or decompensation. ASSESSMENT: 1. A 59-year-old gentleman with massive stroke resulting in hemiparesis. He has had altered mentation and frequent falls. No new strokes identified. 2. Coronary artery disease with previous CABG on x-ray. 3. Essential hypertension. 4. Chronic obstructive pulmonary disease. 5. Generalized debility. 6. Type 2 diabetes. 7. Gastroesophageal reflux disease. PLAN: 1. Observation status. 2. I had a long discussion with him. He needs extensive rehab. He ran out of days for the year 2019. He ____ more benefit from beginning the year. We will try to contact his caretakers for short-term and long-term discharge planning. CHAPINCITO BO MD DR: EDUARDO/gurdeep JOB#: [id number] / [id number]
--- NOTE | 2020-01-26 14:05 | DS ---
DATE OF DISCHARGE: 01/26/2020 ATTENDING PHYSICIAN: Dr. Bo. FINAL DISCHARGE DIAGNOSES: 1. Altered mentation, resolved. 2. Old stroke, right sided, with left-sided hemiparesis. 3. Chronic obstructive pulmonary disease. 4. Essential hypertension. 5. Type 2 diabetes. 6. Left hemiparesis. 7. Generalized debilitation. 8. Frequent falls. HISTORY AND PHYSICAL: This is a 59-year-old gentleman who 4 months ago suffered an extensive stroke, embolic in nature, resulting in left-sided hemiparesis and difficulty walking. Speech was spared. He spent 3 weeks at a rehab facility in [place]. He was sent home because insurance ran out. He has a chain person that is with him most of the time; however, he has been falling. He has also had altered mentation. I asked for urine drug screen that unfortunately was not done. He had an obligatory CT of the head and further evaluation. I reviewed the films. There does not appear to be anything acute, although the actual interpretation by Radiology is still pending at this time. Clinically, he appears back to baseline. His speech is fluent. He has residual left-sided hemiparesis. PHYSICAL EXAMINATION: Please see my dictated note. PERTINENT LABORATORY AND X-RAY STUDIES: Chest x-ray and CT head were done in the ED, please refer to the extensive database and the report; final report still pending at the time of discharge. I looked at his chest x-ray, there does not appear to be any acute infiltrate. He has sternotomy wires from previous bypass surgery. Heart size is normal. Lungs otherwise clear. His blood work showed a hemoglobin of 11.1 g/dL, normal white count. Electrolytes within normal range. Creatinine 1.1. Three sets of cardiac enzymes negative for coronary ischemia. BNP was 950. Nonfasting blood sugar 116. COURSE IN THE HOSPITAL: The patient was admitted. His altered mentation resolved. We continued his home meds. I had a long discussion with the patient, he agrees that he needs further rehab because he ran out of days. I explained to the patient that he needs to contact his insurance agency to determine what benefits he has started in the beginning the New Year in 3 weeks. He is discharged home with his chain person in stable condition with explicit instructions and followup care. His home meds are unchanged. He will continue his amlodipine, aspirin, Lipitor, baclofen, Coreg, hydrocodone p.r.n., Lidoderm patch, metformin, Protonix, Zoloft, and Brilinta dose is unchanged. I have asked him to stop his ibuprofen. He should follow up with PCP as scheduled. The patient was then discharged from our hospital in stable condition with explicit instructions and followup care. CHAPINCITO BO MD DR: EDUARDO/gurdeep JOB#: [id number] / [id number]
--- NOTE | 2020-01-26 16:21 | RAD ---
CT LUMBAR SPINE WO, CT PELVIS WO History:Reason: fall / Spl. Instructions: / History: Technique: Noncontrast CT was performed of the lumbar spine and pelvis. Multiplanar reconstructions w ere performed. Exposure: One or more of the following individualized dose reduction techniques were utilized for thi s examination: 1. Automated exposure control 2. Adjustment of the mA and/or kV according to patient size 3. Use of iterative reconstruction technique. Comparison: None Findings: Lumbar spine CT: Normal vertebral body height and alignment. No fracture. T12-L1: No canal or neuroforaminal narrowing. L1-L2: Small disc bulge. Facet arthropathy. No canal or neuroforaminal narrowing. L2-L3: Small disc bulge. Mild facet arthropathy. Bilateral subarticular recess narrowing. No canal o r neuroforaminal narrowing. L3-L4: Broad-based disc bulge. Moderate facet arthropathy. Ligament of flavum thickening. Bilateral subarticular recess narrowing. Minimal canal narrowing. No neuroforaminal narrowing. L4-L5: Broad-based disc bulge. Moderate facet arthropathy. Mild to moderate canal narrowing. Severe subarticular recess narrowing. Moderate right and mild left neuroforaminal narrowing. L5-S1: Disc bulge. Mild facet arthropathy. No canal or neuroforaminal narrowing. Pelvic CT: Moderate stool-filled colon. Normal appendix. Imaged pelvic bowel loops are nonobstructed. No patholo gic lymphadenopathy. No ascites. Umbilical fat-containing hernia. Left posterior gluteal and lateral hip subcutaneous infiltration, may relate to contusion given histo ry of trauma. Normal alignment of the hips. Left iliac crest sclerotic lesion, likely bone island. Acute fracture of the lower sacrum involving S4 with mild adjacent edema. Impression: Pelvic CT: 1. Acute inferior sacral fracture. Lumbar spine CT: 1. No acute fracture or subluxation of the lumbar spine. 2. Multilevel lumbar spondylosis most prominent L4-L5 with canal and neuroforaminal narrowing, as de scribed. Electronically signed by: Mann Goetz DO (01/26/2020 3:02 AM) [facility]
--- NOTE | 2020-01-26 16:21 | RAD ---
XR CHEST 1V History: Reason: falling, cp / Spl. Instructions: / History: Comparison: December 20, 2019 Findings: Small right pleural effusion. No consolidation. Normal heart size. No pneumothorax. Impression: 1. Small right pleural effusion. Electronically signed by: Mann Goetz DO (01/26/2020 3:03 AM) [facility]
--- NOTE | 2020-01-26 16:21 | RAD ---
CT HEAD AND C-SPINE WO History: Reason: fall / Spl. Instructions: / History: . Pain Comparison: December 20, 2019 Technique: Noncontrast CT imaging was performed of the head and cervical spine. Coronal and sagittal reconstructions were performed. Exposure: One or more of the following individualized dose reduction techniques were utilized for thi s examination: 1. Automated exposure control 2. Adjustment of the mA and/or kV according to patient size 3. Use of iterative reconstruction technique. Findings: Head CT: Right frontal encephalomalacia with adjacent gliosis related to prior infarct, unchanged. Un changed right parieto-occipital chronic infarct. Additional foci of decreased attenuation within the hemispheric white matter, most often due to chron ic microvascular ischemia. No acute intracranial hemorrhage. No mass effect. No hydrocephalus. Imaged orbits are unremarkable. Imaged paranasal sinuses and mastoid air cells are clear. No acute ca lvarial fracture. Cervical spine CT: Normal vertebral body height and alignment. No fracture. Multilevel degenerative disc changes most prominent C5-C6 and C6-C7. Multilevel facet arthropathy. Mu ltilevel neuroforaminal narrowing. No high-grade canal stenosis. Mild canal narrowing C5-C6 and C6-C7 Soft tissues unremarkable. Impression: Head CT: 1. No acute intracranial abnormality. 2. Chronic right frontal and parietal occipital infarcts. Cervical spine CT: 1. No acute fracture or subluxation of the cervical spine. 2. Multilevel cervical spondylosis. Electronically signed by: Mann Goetz DO (01/26/2020 2:53 AM) [facility]
[2020-01-26] MEDS ORDERED: CARVEDILOL 12.5 MG TABLET PO SCH (17:00)
[2020-01-26] MEDS ORDERED: metFORMIN 500 MG TABLET PO SCH (17:00)
[2020-01-26] MEDS ORDERED: ATORVASTATIN CALCIUM 20 MG TABLET PO SCH (21:00)
== END 2020-01-26 13:33 | disposition home or self-care (01) ==
LOC: ER 00:12 → INTOOBSV 04:18 → 1 SOUTH 04:18
PROVIDERS: ADMIT Hospitalist; ATTEND Hospitalist
DX: I63.9 Cerebral infarction, unspecified (principal); R41.82 Altered mental status, unspecified; I25.10 Atherosclerotic heart disease of native coronary artery without angina pectoris; I10 Essential (primary) hypertension; J44.9 Chronic obstructive pulmonary disease, unspecified; R53.81 Other malaise; I69.354 Hemiplegia and hemiparesis following cerebral infarction affecting left non-dominant side; I69.351 Hemiplegia and hemiparesis following cerebral infarction affecting right dominant side; E11.9 Type 2 diabetes mellitus without complications; K21.9 Gastro-esophageal reflux disease without esophagitis; F32.9 Major depressive disorder, single episode, unspecified; E83.42 Hypomagnesemia; D64.9 Anemia, unspecified; R29.6 Repeated falls; R29.700 NIHSS score 0; Z91.81 History of falling; Z95.1 Presence of aortocoronary bypass graft; Z87.891 Personal history of nicotine dependence; Z79.82 Long term (current) use of aspirin
CPT/HCPCS: 36415; 70450; 71045; 72125; 72131; 72192; 80048; 80076; 82550; 83690; 83735; 83880; 84443; 84484; 85025; 85610; 85730; 93005; 96361; 96365; 99285; G0378; J3475; J7120; G0379

== ENCOUNTER → 2020-02-09 | Emergency (ER) | payer OTHER ==
[~2020-02-09] VITALS: Ht 180.3 cm; Wt 70.6 kg
[~2020-02-09] MED LIST changes: +AMLO-187 PO; +HYDR-2759 PO; +HYDROcodone/APAP 5/325MG 1 TAB TABLET PO ONE; +IBUP-571 PO; +SERT25TA PO
[2020-02-09 13:36] VITALS: BP 133/77
--- NOTE | 2020-02-09 14:07 | PHYS DOC ---
Past History Past Medical History: CAD, Heart Disease, Hypertension, Stroke Past Surgical History: Coronary Bypass Surgery Additional Past Surgical Histo: quadruple bypass Smoking: Quit Less Than 1 Year Alcohol Use: Rarely Drug Use: None General Adult EDM: Chief Complaint: MECHANICAL FALL HPI: HPI: Patient is a 60-year-old male with PMHx of CVA with LUE residual weakness presents for evaluation of left hand pain after a mechanical fall. Patient states he lost his balance fell to the ground. He denies any head injury. Patient complains of left hand and wrist and forearm pain. Left hand and wrist with significant swelling. Patient has pain with range of motion in the area is tender to palpation. Review of Systems: Review of Systems: Constitutional: Denies fever or chills Eyes: Denies change in visual acuity HENT: Denies nasal congestion or sore throat Respiratory: Denies cough or shortness of breath Cardiovascular: Denies chest pain or edema GI: Denies abdominal pain, nausea, vomiting, bloody stools or diarrhea : Denies dysuria Musculoskeletal: Denies back pain positive joint pain Integument: Denies rash Neurologic: Denies headache, focal weakness or sensory changes Endocrine: Denies polyuria or polydipsia Lymphatic: Denies swollen glands Psychiatric: Denies depression or anxiety Allergies: Allergies: Allergies Coded Allergies Type Severity Reaction Last Updated Verified No Known Drug Allergies 02/09/20 No Physical Exam: PE: Constitutional: Well developed, well nourished, no acute distress, non-toxic appearance. [] HENT: Normocephalic, atraumatic, bilateral external ears normal, oropharynx moist, no oral exudates, nose normal. [] Eyes: PERRLA, EOMI, conjunctiva normal, no discharge. [] Neck: Normal range of motion, no tenderness, supple, no stridor. [] Cardiovascular:Heart rate regular rhythm, no murmur [] Lungs & Thorax: Bilateral breath sounds clear to auscultation [] Abdomen: Bowel sounds normal, soft, no tenderness, no masses, no pulsatile masses. [] Skin: Warm, dry, no erythema, no rash. [] Back: No tenderness, no CVA tenderness. [] Extremities: , no cyanosis, no clubbing, ROM intact, no edema. [tenderness and swelling hand along 5th,] Neurologic: Alert and oriented X 3, normal motor function, normal sensory function, no focal deficits noted. [] Psychologic: Affect normal, judgement normal, mood normal. [] Current Patient Data: Vital Signs: Vital Signs Date Time Temp Pulse Resp B/P (MAP) Pulse Ox O2 Delivery O2 Flow Rate FiO2 02/09/20 13:36 97.9 67 16 133/77 (95) 100 EKG: EKG: [] Radiology/Procedures: Radiology/Procedures: [] Heart Score: Risk Factors: Risk Factors: DM, Current or recent (<one month) smoker, HTN, HLP, family history of CAD, obesity. Risk Scores: Score 0 - 3: 2.5% MACE over next 6 weeks - Discharge Home Score 4 - 6: 20.3% MACE over next 6 weeks - Admit for Clinical Observation Score 7 - 10: 72.7% MACE over next 6 weeks - Early Invasive Strategies Course & Med Decision Making: Course & Med Decision Making Pertinent Labs and Imaging studies reviewed. (See chart for details) []Patients left hand evaluated. Treatment included splint-- applied by RN/medical office technician. NVI post application. Patient refered to ortho. Rx norco. George Disclaimer: George Disclaimer: This electronic medical record was generated, in whole or in part, using a voice recognition dictation system. Departure Departure: Impression: Primary Impression: Metacarpal bone fracture Additional Impression: Fall Disposition: 01 DC HOME SELF CARE/HOMELESS Condition: STABLE Referrals: EDDIE KING MD (PCP) Patient Instructions: Hand Fracture, Fifth Metacarpal Scripts Hydrocodone Bit/Acetaminophen (NORCO 5-325 TABLET) 1 Each Tablet 1 TAB PO PRN Q6HRS PRN for PAIN, #20 TAB 0 Refills Prov: MAKAYLA FUNES DO 02/09/20 MAKAYLA FUNES DO Feb 09, 2020 14:07
--- NOTE | 2020-02-09 14:32 | RAD ---
Exam performed: X-ray left forearm, wrist and hand. HISTORY: Pain, status post fall. DATE OF SERVICE: 02/09/2020. COMPARISON: None available. FINDINGS: AP, lateral and oblique views of the left wrist and hand is obtained. There is a mildly displaced fra cture involving the neck of fifth metacarpal. The remainder alignment of the hand is grossly preserve d given the contraction deformity from prior stroke. The wrist joint appears preserved. There is diff use soft tissue swelling in the head. AP and lateral view of the left forearm is obtained. Normal alignment of the wrist and elbow joint is maintained. There is no acute fracture or dislocation. Mild soft tissue swelling is seen. No foreign body. IMPRESSION: Mildly displaced fracture neck of fifth metacarpal with diffuse soft tissue swelling. No acute abnormality seen in the x-ray wrist or forearm. Electronically signed by: Susanna Nguyen MD (02/09/2020 2:29 PM) [facility]
== END | disposition home or self-care (01) ==
LOC: ER 13:19
DX: S62.337A Displaced fracture of neck of fifth metacarpal bone, left hand, initial encounter for closed fracture (principal); I10 Essential (primary) hypertension; Z87.891 Personal history of nicotine dependence; W01.0XXA Fall on same level from slipping, tripping and stumbling without subsequent striking against object, initial encounter; Y93.89 Activity, other specified; Y92.89 Other specified places as the place of occurrence of the external cause; Y99.8 Other external cause status
CPT/HCPCS: 29125; 73090; 73110; 73130; 99284-25

== ENCOUNTER → 2020-02-24 | Outpatient (CLI) | payer OTHER ==
[2020-02-09 13:36] VITALS: BP 133/77
[~2020-02-24] MED LIST changes: -HYDROcodone/APAP 5/325MG 1 TAB TABLET PO ONE
--- NOTE | 2020-02-25 07:45 | RAD ---
Left hand 3 views. Follow-up fracture 3 views were taken of the left hand. The hand is in a splint or cast. There is a displaced fracture o f the fifth metacarpal with little change in the alignment or position compared to the original image s. IMPRESSION: 1. Displaced fracture left fifth metacarpal. Electronically signed by: Lincoln Mesa MD (02/25/2020 7:37 AM) [facility]
== END ==
LOC: DXRAD 16:29
PROVIDERS: ATTEND Family Medicine
DX: S62.337A Displaced fracture of neck of fifth metacarpal bone, left hand, initial encounter for closed fracture (principal); X58.XXXA Exposure to other specified factors, initial encounter; Y93.89 Activity, other specified; Y92.89 Other specified places as the place of occurrence of the external cause; Y99.8 Other external cause status
CPT/HCPCS: 73130

== ENCOUNTER 2020-03-15 22:38 | Emergency (ER) | payer OTHER ==
[~2020-03-15] VITALS: Ht 180.3 cm; Wt 70.6 kg
--- NOTE | 2020-03-15 23:20 | PHYS DOC ---
Past History Past Medical History: CAD, Heart Disease, Hypertension, Stroke Past Surgical History: Coronary Bypass Surgery Additional Past Surgical Histo: quadruple bypass Smoking: Quit Less Than 1 Year Alcohol Use: Rarely Drug Use: None Adult General Chief Complaint Chief Complaint: HYPERTENSION HPI HPI Patient is a 60-year-old male with a past medical history of CVA approximately 2 to 3 months ago who presents with a chief complaint of hypertension fatigue. States that he takes his blood pressure measurements every day and over the last 3 to 4 days he has had systolic blood pressures ranging from 133 to as high as 157 over the course of the day. States that his bottom number is always in the 80s. States he uses a wheelchair at home as since his stroke his left leg is weak. States that he thinks it is getting a little better but still has to use his wheelchair. States he also has to use depends as he does have some urinary incontinence from the stroke. Denies any new headache, changes in vision, trouble swallowing, chest pain, shortness of breath, abdominal pain, nausea, vomiting, diarrhea. Denies any new numbness/weakness/tingling/slurred speech, confusion. States that he did fall a few weeks ago and break his wrist. States he seen orthopedic surgery for this and is supposed to have a follow-up next week for repeat x-rays. States he is supposed to wear the splint until then. States he is otherwise eating and drinking normally. States he is making stool normally with no blood in it. States his urine has no blood in it and has no dysuria. Denied any skin lesions or wounds. States he has a close friend who is his caregiver at home and helps him out. Review of Systems Review of Systems Review of systems otherwise unremarkable except for noted in HPI. Allergies Allergies Allergies Coded Allergies Type Severity Reaction Last Updated Verified No Known Drug Allergies 02/09/20 No Physical Exam Physical Exam Constitutional: Well developed, well nourished, no acute distress, non-toxic appearance. [] HENT: Normocephalic, atraumatic, oropharynx moist, no oral exudates, nose normal. [] Eyes: PERRLA, EOMI, conjunctiva normal, no discharge. [] Neck: Normal range of motion, no tenderness Cardiovascular:Heart rate regular rhythm, no murmur [] Lungs & Thorax: Bilateral breath sounds clear to auscultation [] Abdomen: soft, no tenderness, no masses, no pulsatile masses. [] Skin: Warm, dry, no erythema, no rash. [] Back: No tenderness, Extremities: No tenderness, no cyanosis, no clubbing, ROM intact, no edema. [] Neurologic: Alert and oriented X 3, normal gross sensation. Gross motor normal. Left leg however probably 4 out of 5 on strength. Right leg 5 out of 5. Cranial nerves intact. [id number] and [id number] intact. States can move back and forth from his wheelchair normally. Psychologic: Affect normal, judgement normal, mood normal. [] EKG EKG [] Radiology/Procedures Radiology/Procedures [] Heart Score Risk Factors: Risk Factors: DM, Current or recent (<one month) smoker, HTN, HLP, family history of CAD, obesity. Risk Scores: Risk Factors: DM, Current or recent (<one month) smoker, HTN, HLP, family history of CAD, obesity. Course & Med Decision Making Course & Med Decision Making Patient is a 60-year-old male who presents with concern for hypertension Vital signs not concerning. Physical exam noted above. No new focal neurologic deficits on exam. Alert and oriented x3, cranial nerves intact, gross sensation intact. Motor at baseline per patient. Patient splints on left arm however seemed a little tight and has been on for 2 weeks so changed/adjusted for comfort. 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 Gave strict recommendations on follow-up including calling his primary care physician first thing Wednesday to discuss blood pressure and blood pressure management issues. Also gave strict recommendations to call his orthopedic surgeon first thing Wednesday to update on ED visit, let them know his splint was changed and make sure he is getting in next week to be seen and get his repeat films. Also gave strict return precautions to the emergency department including but not limited to any new numb ness/weakness/tingling/confusion or slurred speech, chest pain, new traumas or excessive pain or swelling in the left arm that his splint has. Given splint care instructions as well. Patient grateful, verbalized understanding and agreed with plan of discharge. [] Dragon Disclaimer Dragon Disclaimer This electronic medical record was generated, in whole or in part, using a voice recognition dictation system. Departure Departure: Impression: Primary Impression: Hypertension Additional Impression: Fatigue Disposition: 01 DC HOME SELF CARE/HOMELESS Condition: GOOD Referrals: EDDIE KING MD (PCP) Patient Instructions: Fatigue, Hypertension, Splint Care, [id number] Additional Instructions: Please read all of the attached information. As discussed please call your primary care physician and her orthopedic surgeon first thing Wednesday morning to discuss your ED visit, hypertension management and need for repeat x-rays and splint management. As discussed please come back to the emergency department immediately with any new or concerning symptoms. Please continue to take all your medications as prescribed. Please be careful with your hydrocodone at home especially just before going to bed as this can increase your risk of falling. Problem Qualifiers CELESTE SNAFORD MD Mar 15, 2020 23:20
[2020-03-16 00:05] VITALS: BP 138/84
== END 2020-03-16 00:14 | disposition home or self-care (01) ==
LOC: ER 22:38
DX: I10 Essential (primary) hypertension (principal); R53.83 Other fatigue; R53.1 Weakness; I11.9 Hypertensive heart disease without heart failure; I25.810 Atherosclerosis of coronary artery bypass graft(s) without angina pectoris; Z86.73 Personal history of transient ischemic attack (TIA), and cerebral infarction without residual deficits; Z87.891 Personal history of nicotine dependence
CPT/HCPCS: 99284; 99285

== ENCOUNTER → 2020-03-28 | Outpatient (CLI) | payer OTHER ==
[2020-03-16 00:05] VITALS: BP 138/84
--- NOTE | 2020-03-28 20:22 | RAD ---
Left hand 3 views: Reason for examination: Persistent pain and swelling to left hand. History of recent fracture. Comparison is made to previous studies dated 02/24/2020 and 02/09/2020. There is a fracture of the distal fifth metacarpal bone which shows some mild displacement but alignm ent is unchanged when compared to previous exams. There is however some callus formation developing a round the fracture site. No new sites of fracture or dislocation is seen. The bone density is normal. No new periosteal reaction is seen. Joint spaces are maintained. IMPRESSION: Healing fracture at the distal fifth metacarpal bone with no change in alignment but callus formation is developing. Left foot 3 views: Reason for examination: Fell with left foot pain. No acute fracture or dislocation is seen. The bone density is normal. No abnormal periosteal reaction is seen. Note is made of some calcaneal spurring at the plantar surface of the calcaneus and at the insertion of the Achilles tendon. IMPRESSION: No acute bony abnormality in the left foot. Electronically signed by: Lisy Zurita MD (03/28/2020 8:20 PM) [facility]
== END ==
LOC: RAD 18:58
PROVIDERS: ATTEND Family Medicine
DX: S62.367A Nondisplaced fracture of neck of fifth metacarpal bone, left hand, initial encounter for closed fracture (principal); M79.672 Pain in left foot; X58.XXXA Exposure to other specified factors, initial encounter; Y93.89 Activity, other specified; Y92.89 Other specified places as the place of occurrence of the external cause; Y99.8 Other external cause status
CPT/HCPCS: 73130; 73630